=== PATIENT | male | born 1950 | race Two or more races ===

== ENCOUNTER 2019-08-14 15:40 | Inpatient (IN) | payer MEDICARE, MEDICAID ==
[~2019-08-14] VITALS: Ht 170.2 cm; Wt 72.3 kg
[2019-08-14 17:00] VITALS: BP 101/65
[2019-08-14] MEDS ORDERED: HEPARIN DRIP/D5W 100UNITS/ML 250 ML IV SCH (17:44)
[2019-08-14] MEDS ORDERED: ACETAMINOPHEN 500 MG TAB PO PRN (17:45)
[2019-08-14] MEDS ORDERED: MORPHINE SULF INJ 2 MG/ML SYRINGE 1ML IV PRN (17:45)
[2019-08-14] MEDS ORDERED: ONDANSETRON HCL 4 MG/2 ML VIAL IV PRN (17:45)
[2019-08-14] MEDS ORDERED: NITROGLYCERIN 0.4 MG SL TAB SL PRN (17:45)
[2019-08-14] MEDS ORDERED: hydrALAZINE HCL 20 MG/ML VL IV PRN (17:45)
[2019-08-14 18:28] VITALS: BP 101/65
[2019-08-14 18:45] LABS: Basophils # (auto) 0 uL; Basophils % (auto) 0.7 % (0.0-2.0); Hemoglobin 9.5 g/dL (13.5-17.5); Monocytes # (auto) 0.4 uL; Red Blood Cells 3.69 10^6/uL (4.5-5.90)
[2019-08-14 18:48] LABS: Eosinophils # (auto) 0 uL; Eosinophils % (auto) 1.2 % (0.0-7.0); Hematocrit 30.2 % (41.0-53.0); Lymphocytes # (auto) 1.2 uL; Lymphocytes % (auto) 33.1 % (10.0-50.0); Mean Corpuscular Hemoglobin 25.6 pg (28.0-32.0); Mean Corpuscular Hgb Conc. 31.4 g/dL (32.0-36.0); Mean Corpuscular Volume 81.6 fL (80.0-100.0); Monocytes % (auto) 10.9 % (0.0-12.0); Neutrophils % (auto) 54.1 % (37.0-80.0); Nucleated Red Blood Cells % 0.2 %; Platelet Count (auto) 183 10^3/uL (140-450); Red Cell Distribution Width 19.8 % (11.8-14.3); White Blood Cell 3.7 10^3/uL (4.4-10.8)
[2019-08-14] MEDS ORDERED: METO-159 PO (18:54)
[2019-08-14] MEDS ORDERED: SENN1TAB14 PO (18:54)
[2019-08-14] MEDS ORDERED: DOCU-94 PO (18:54)
[2019-08-14] MEDS ORDERED: CRAN600T PO (18:54)
[2019-08-14] MEDS ORDERED: ACET-1156 PO (18:54)
[2019-08-14] MEDS ORDERED: AMLO5TAB15 PO (18:54)
[2019-08-14] MEDS ORDERED: FERR-20 PO (18:54)
[2019-08-14] MEDS ORDERED: ALLO300T2 PO (18:54)
[2019-08-14] MEDS ORDERED: ACET250T3 PO (18:54)
[2019-08-14 18:57] LABS: INR 1.06 (0.9-1.15); Partial Thromboplastin Time 36.9 sec (23.64-32.05)
--- NOTE | 2019-08-14 19:20 | NUR ---
Critical Lab Critical troponin 28.7. Hospitalist will be made aware.
--- NOTE | 2019-08-14 19:38 | NUR ---
Called/paged Dr. Cortes called re: elevated troponin of 28.7. Waiting for call back. Continue care. Hospitalist Gurinder Parham aware.
--- NOTE | 2019-08-14 19:41 | NUR ---
Spoke to Dr. Cortes Received order to prepare checklist and consents for possible hearth cath for william
[2019-08-14] MEDS: MORPHINE SULF INJ 2 MG/ML SYRINGE 1ML IV PRN (19:46)
--- NOTE | 2019-08-14 20:01 | NUR ---
returned call Dr. Cortes returned call. Ordered for a Code Stemi and to call labour market economist team. Will notify house sup and charge nurse. Continue care.
--- NOTE | 2019-08-14 20:03 | NUR ---
House Sup notified of Code Stemi.
--- NOTE | 2019-08-14 20:05 | NUR ---
Patient signed consents for heart cath.
--- NOTE | 2019-08-14 20:07 | NUR ---
Hospitalist called STILL PUMP OPERATOR Gurinder Parham called and oredered to upgrade patient to ICU. Will notify charge. 12 lead EKG on patient. RN at bedside.
--- NOTE | 2019-08-14 20:09 | NUR ---
Resource nurse and Charge nurse Attempted to insert a second IV. Unable to insert second IV.
--- NOTE | 2019-08-14 20:17 | NUR ---
Prepped patient with CHG wipes and changed to a clean gown. Awaiting to take patient down to semiconductor lab technician.
[2019-08-14] MEDS ORDERED: IODIXANOL 320MG/ML 100ML BTL IV ONE (20:27)
[2019-08-14] MEDS ORDERED: LIDOCAINE 2%HCL (LOCAL ANESTH.) INJ 20ML MDV ONE (20:27)
[2019-08-14] MEDS ORDERED: ATROPINE SULFATE 0.4 MG/1 ML VIAL ONE (20:39)
[2019-08-14] MEDS ORDERED: fentaNYL CITRATE 100 MCG/2 ML VL ONE (20:39)
[2019-08-14] MEDS ORDERED: EPINEPHrine HCL 1 MG/1 ML AMP ONE (20:39)
[2019-08-14] MEDS ORDERED: ANGIOMAX 250 MG VIAL IV ONE (20:39)
[2019-08-14] MEDS ORDERED: MIDAZOLAM HCL 1MG/1ML-2 ML VIAL ONE (20:40)
[2019-08-14] MEDS ORDERED: IOHEXOL 350 MG/ML 100ML IJ ONE (20:40)
[2019-08-14] MEDS ORDERED: NITROGLYCERIN 50MG/250ML 0 ML IV ONE (20:40)
[2019-08-14] MEDS ORDERED: SODIUM CHL 0.9% 50 ML ONE (20:40)
[2019-08-14] MEDS ORDERED: DOPamine 1600MCG/ML D5W 0 ML IV ONE (20:40)
--- NOTE | 2019-08-14 20:40 | NUR ---
Received call from fish hatchery laborer to bring patient down.
[2019-08-14] MEDS ORDERED: ADENOSINE 6 MG/2 ML INJ IV ONE (20:42)
--- NOTE | 2019-08-14 20:43 | NUR ---
Transferred patient to laborer brush clearing via hospital bed attached to 12 lead EKG. Patient tolerated well.
[2019-08-14] MEDS ORDERED: CLOPIDOGREL 300 MG TAB ONE (21:49)
[2019-08-14] MEDS ORDERED: ASPirin 325 MG TAB ONE (21:50)
--- NOTE | 2019-08-14 21:50 | NUR ---
terrazzo laborer called. Per Dr. Jermaine Cortes, patient will not be transferred to ICU and patient will be sent back to Tele floor. Will notify charge nurse.
--- NOTE | 2019-08-14 22:35 | NUR ---
Back to floor from grass farm laborer. Patient asleep with no signs of distress. Pressure dressing on right groin with small pinkish discharge. Right groin soft with no signs of hemorrhage. Will continue to monitor.
[2019-08-14 23:07] LABS: White Blood Cell 3.6 10^3/uL (4.4-10.8)
[2019-08-14 23:09] LABS: Hematocrit 29.6 % (41.0-53.0); Hemoglobin 9.3 g/dL (13.5-17.5); Mean Corpuscular Hemoglobin 25.7 pg (28.0-32.0); Mean Corpuscular Hgb Conc. 31.6 g/dL (32.0-36.0); Mean Corpuscular Volume 81.6 fL (80.0-100.0); Platelet Count (auto) 185 10^3/uL (140-450); Red Blood Cells 3.63 10^6/uL (4.5-5.90); Red Cell Distribution Width 19.8 % (11.8-14.3)
[2019-08-14 23:17] LABS: Basophils % (manual) 0 (0.0-2.0); Blast Cells 0; Metamyelocytes % 0; Myelocytes % 0; Promyelocytes % 0; Reactive Lymphocytes 0
[2019-08-14 23:22] LABS: BUN/Creatinine Ratio 12.3; Calcium 8.2 mg/dL (8.5-10.1); Potassium 3.9 mmol/L (3.5-5.1)
[2019-08-15] MEDS: ATORVASTATIN 20 MG TAB PO SCH ×2 (01:33→22:01)
[2019-08-15] MEDS: SODIUM CHLORIDE 0.9% 1,000 ML IV SCH ×2 (01:33→11:08)
[2019-08-15] MEDS: DOCUSATE SOD 100 MG CAP PO SCH ×3 (01:33→22:00)
[2019-08-15] MEDS: METOPROLOL TARTRATE 25 MG TAB PO SCH ×3 (01:35→22:01)
--- NOTE | 2019-08-15 02:05 | NUR ---
Lab called for Critical Troponin Troponin at 90.3 up from 28.7. Patient is status post heart cath last night 08/14 Will notify hospitalist.
--- NOTE | 2019-08-15 02:08 | NUR ---
Hospitalist Called/paged TOOL PROGRAMMER Ilan Thakur called re: critical troponin of 90.3. Waiting for call back. Continue care. Dr. Jermaine Cortes also notified of critical troponin.
[2019-08-15] MEDS: MORPHINE SULF INJ 2 MG/ML SYRINGE 1ML IV PRN (02:28)
[2019-08-15 02:47] LABS: Band Neutrophils % (manual) 1; Eosinophils % (manual) 1 (0-7); Lymphocytes % (manual) 19 (10.0-50.0); Monocytes % (manual) 6 (0-12)
[2019-08-15 05:00] VITALS: BP 100/66
--- NOTE | 2019-08-15 07:16 | NUR ---
Endorsed care to day shift RN.
[2019-08-15 07:49] LABS: Basophils # (auto) 0 uL; Eosinophils # (auto) 0 uL; Eosinophils % (auto) 0.7 % (0.0-7.0); Hemoglobin 9.5 g/dL (13.5-17.5); Lymphocytes # (auto) 0.8 uL; Mean Corpuscular Hemoglobin 25.8 pg (28.0-32.0); Mean Corpuscular Hgb Conc. 31.5 g/dL (32.0-36.0); Monocytes # (auto) 0.5 uL; Monocytes % (auto) 13.6 % (0.0-12.0); Neutrophils # (auto) 2.1 uL; Neutrophils % (auto) 61.7 % (37.0-80.0); Nucleated Red Blood Cells % 0.1 %; Platelet Count (auto) 179 10^3/uL (140-450); Red Blood Cells 3.66 10^6/uL (4.5-5.90); Red Cell Distribution Width 19.8 % (11.8-14.3); White Blood Cell 3.4 10^3/uL (4.4-10.8)
[2019-08-15 07:56] LABS: BUN/Creatinine Ratio 11.8; Calcium 8.1 mg/dL (8.5-10.1); Potassium 4.1 mmol/L (3.5-5.1)
[2019-08-15 07:58] LABS: INR 1.06 (0.9-1.15); Partial Thromboplastin Time 31.4 sec (23.64-32.05)
[2019-08-15] MEDS: ASPirin-EC 81 mg tab PO SCH (08:43)
[2019-08-15] MEDS: CLOPIDOGREL BISULFATE 75 MG TAB PO SCH (08:44)
[2019-08-15] MEDS: FAMOTIDINE 20 MG TAB PO SCH (08:45)
[2019-08-15] MEDS: HYDROcodone-ACET 5/325MG TAB PO PRN ×3 (08:46→22:01)
[2019-08-15 09:00] VITALS: BP 107/76
[2019-08-15] MEDS: LISINOPRIL 10 MG TAB PO SCH (11:07)
[2019-08-15 13:00] VITALS: BP 133/81
[2019-08-15 17:00] VITALS: BP 117/77
--- NOTE | 2019-08-15 19:40 | NUR ---
Opening Shift Note Assumed care of patient, awake and alert. No S/S of distress/SOB or pain. Right groin incision, clean dry and intact, no hematoma noted. Bed locked in lowest position, side rails upx2, call light within reach. Instructed on POC and to call for assist PRN, will continue to monitor for changes Q1hr and PRN.
[2019-08-15 22:00] VITALS: BP 135/89
[2019-08-16] MEDS: SODIUM CHLORIDE 0.9% 1,000 ML IV SCH ×2 (04:00→14:15)
[2019-08-16 05:43] VITALS: BP 147/76
[2019-08-16 08:09] VITALS: BP 159/98
--- NOTE | 2019-08-16 08:17 | NUR ---
Opening Note Assumed pt care from [facility] nurse. Pt is a/ox4 with no s/s of distress or SOB. Pt is currently laying in bed with mild complaints of joint pain from his "gout". Discussed availability of pain medication. Discussed POC with pt' pt verbalized understanding. Dressing to L groin from [facility] is dry and inact; pt states that he has some mild pain from the site. Safety measures maintained with call light within reach, bed in lowest position and side rails up. Will continue to monitor for changes q1hr and prn.
[2019-08-16] MEDS: CLOPIDOGREL BISULFATE 75 MG TAB PO SCH (08:45)
[2019-08-16] MEDS: cefTRIAXone 1GM/50ML D5W 50 ML IV SCH ×2 (08:45→21:45)
[2019-08-16] MEDS: HYDROcodone-ACET 5/325MG TAB PO PRN ×2 (08:45→22:30)
[2019-08-16] MEDS: ASPirin-EC 81 mg tab PO SCH (08:45)
[2019-08-16] MEDS: FAMOTIDINE 20 MG TAB PO SCH (08:46)
[2019-08-16] MEDS: METOPROLOL TARTRATE 25 MG TAB PO SCH ×2 (08:46→21:46)
[2019-08-16] MEDS: DOCUSATE SOD 100 MG CAP PO SCH ×2 (08:46→21:45)
[2019-08-16] MEDS: LISINOPRIL 10 MG TAB PO SCH (08:46)
[2019-08-16 13:00] VITALS: BP 146/90
--- NOTE | 2019-08-16 16:39 | NUR ---
PETER SHORT; LEFT MESSAGE VIA ANSWERING SERVICE Pt is upset that MD has not seen him since [facility]. Pt is becoming quite frustrated and requested that the MD see the pt. Reassured the pt that MD will round to see him. Told pt that I will page MD to follow up. Attempted to call MD via cell phone; no answer. Left message via his answering service.
[2019-08-16 17:09] VITALS: BP 169/96
--- NOTE | 2019-08-16 19:30 | NUR ---
Opening Shift Note Assumed care of patient, awake and alert x4. Resting in bed. Extra blanket given per pt request. Using urinal. IV infusing per orders. Site benign. Will page MD regarding pt request for benadryl. States " the soap is making me very itchy." No S/S of distress/SOB or pain. Instructed on POC and to call for assist PRN, will continue to monitor for changes Q1hr and PRN.
[2019-08-16 22:00] VITALS: BP 147/83
[2019-08-16] MEDS: ATORVASTATIN 20 MG TAB PO SCH (22:00)
--- NOTE | 2019-08-16 22:00 | NUR ---
Paged hospitalist @ 1999 and [phone]. Received call back informing me he was not the attending that Dr. Will Cortes was. Paged Dr. Cortes. and awaiting return phone call. Patient requesting benadryl for itching and a sleeping pill. No distress noted
[2019-08-17 04:14] VITALS: BP 125/81
[2019-08-17] MEDS: SODIUM CHLORIDE 0.9% 1,000 ML IV SCH (06:57)
--- NOTE | 2019-08-17 07:00 | NUR ---
Never received return call from Dr. Cortes. Patient slept well through out night. Endorsed care to
--- NOTE | 2019-08-17 07:30 | NUR ---
OPENING SHIFT NOTE PATIENT UP OUT OF BED IN ROOM. PATIENT IN NO S/S OF DISTRESS AT THIS TIME. DENIES ANY PAIN AT THIS TIME. PATIENT STATES HE WANTS TO GO HOME. WILL CALL M.D. PATIENT UPDATED ON POC. ALL QUESTIONS ANSWERED. BED IN LOWEST LOCKED POSITION. WILL CONTINUE CARE.
[2019-08-17 09:00] VITALS: BP 153/97
--- NOTE | 2019-08-17 09:45 | NUR ---
Jareth SHORT AT BEDSIDE. MADE AWARE OF PATIENT STATUS. RECEIVED NEW ORDERS. TORB. WILL FOLLOW THROUGH
[2019-08-17] MEDS: cefTRIAXone 1GM/50ML D5W 50 ML IV SCH ×2 (10:07→22:29)
[2019-08-17] MEDS: LISINOPRIL 10 MG TAB PO SCH (10:38)
[2019-08-17] MEDS: FAMOTIDINE 20 MG TAB PO SCH (10:38)
[2019-08-17] MEDS: CLOPIDOGREL BISULFATE 75 MG TAB PO SCH (10:38)
[2019-08-17] MEDS: DOCUSATE SOD 100 MG CAP PO SCH ×2 (10:39→22:00)
[2019-08-17] MEDS: ASPirin-EC 81 mg tab PO SCH (10:39)
[2019-08-17] MEDS: FLUCONAZOLE 100 MG TAB PO SCH (10:39)
[2019-08-17] MEDS: METOPROLOL TARTRATE 25 MG TAB PO SCH ×2 (10:40→22:35)
[2019-08-17] MEDS: ALBUTEROL SULF 2.5 MG/0.5ML(0.5%) NEB SOLN NEB SCH ×3 (11:12→22:31)
[2019-08-17] MEDS: IPRATROPIUM BROM 0.5 MG/2.5ML INH SOL NEB SCH ×3 (11:13→22:31)
[2019-08-17] MEDS: CLOTRIMAZOLE 1 % CREAM 15GM TOP SCH ×2 (11:21→22:00)
--- NOTE | 2019-08-17 12:00 | NUR ---
IV insertion IV access obtained, via clean sterile technique by inserting 22 gauge catheter at L HAND after 1 attempt(s). IV secured properly. No trauma to site. Patient tolerated well. NOTE:
--- NOTE | 2019-08-17 12:00 | NUR ---
IV removal IV DC'd with clean sterile technique, catheter fully intact. Pressure dressing applied to site. Patient tolerated well. NOTE:
[2019-08-17 13:00] VITALS: BP 134/80
--- NOTE | 2019-08-17 18:48 | NUR ---
assessment Rigoberto is a 68 year old male who is alert and oriented. Patients cognitive abilities are intact. Prior to admission patient lived home with his fiance and functioned with assistance. Per patient he will return home to his prior living arrangements post discharge and family will transport him home. Patient informed me he has a fww and a cane for home use. Patient has a [facility] caregiver to cook and clean for him. Patient has been admitted for non stemi. Patient may benefit from home health for safety and vitals on discharge. I informed patient he has a right to speak to a manager social media regarding all care. I informed patient he has a right to participate in any and all discharge planning. Patient does not have a POA and advanced directive. I have offered patient information on POA and advanced directives. I informed the patient the advantages and benefits of having an Advanced Directive. Patient verbalized understanding and agreed to discharge plan. Addendum: 08/17/19 at 1850 by Ami JOSHUA Amended: Links added.
--- NOTE | 2019-08-17 19:00 | NUR ---
CARE ENDORSED TO JANIA DARBY. PATIENT HAS NO S/S OF DISTRESS NOTED AT THIS TIME.
--- NOTE | 2019-08-17 19:30 | NUR ---
Opening Shift Note Assumed care of patient, awake and alert. In better spirits today. Seen by Dr. Cortes today. Requesting a sleeping pill later. Witnessed a steady gait . No S/S of distress/SOB or pain. Instructed on POC and to call for assist PRN, will continue to monitor for changes Q1hr and PRN.
[2019-08-17 20:00] VITALS: BP 134/92
[2019-08-17] MEDS: ATORVASTATIN 20 MG TAB PO SCH (22:29)
[2019-08-17] MEDS: TEMAZEPAM 15 MG CAP PO PRN (22:36)
[2019-08-18 01:25] VITALS: BP 145/87
[2019-08-18] MEDS: ALBUTEROL SULF 2.5 MG/0.5ML(0.5%) NEB SOLN NEB SCH ×6 (02:25→22:11)
[2019-08-18] MEDS: IPRATROPIUM BROM 0.5 MG/2.5ML INH SOL NEB SCH ×6 (02:25→22:11)
[2019-08-18 05:41] VITALS: BP 154/90
[2019-08-18 07:26] LABS: Eosinophils # (auto) 0.1 uL; Lymphocytes # (auto) 0.7 uL; Monocytes # (auto) 0.5 uL; Nucleated Red Blood Cells % 0.1 %; Red Cell Distribution Width 19.9 % (11.8-14.3)
[2019-08-18 07:28] LABS: Basophils # (auto) 0.1 uL; Basophils % (auto) 1.5 % (0.0-2.0); Eosinophils % (auto) 2.3 % (0.0-7.0); Hematocrit 31.4 % (41.0-53.0); Hemoglobin 9.7 g/dL (13.5-17.5); Lymphocytes % (auto) 19.3 % (10.0-50.0); Mean Corpuscular Hemoglobin 25.5 pg (28.0-32.0); Mean Corpuscular Hgb Conc. 30.9 g/dL (32.0-36.0); Mean Corpuscular Volume 82.4 fL (80.0-100.0); Monocytes % (auto) 15.2 % (0.0-12.0); Neutrophils # (auto) 2.1 uL; Neutrophils % (auto) 61.7 % (37.0-80.0); Platelet Count (auto) 127 10^3/uL (140-450); Red Blood Cells 3.81 10^6/uL (4.5-5.90); White Blood Cell 3.4 10^3/uL (4.4-10.8)
--- NOTE | 2019-08-18 07:30 | NUR ---
OPENING SHIFT NOTE PATIENT SITTING UP IN BED. NO S/S OF DISTRESS NOTED AT THIS TIME. DENIES ANY PAIN AT THIS TIME. A&0X4. UPDATED ON POC. ALL QUESTIONS ANSWERED. BED IN LOWEST LOCKED POSITION WITH CALL LIGHT WITHIN REACH.
[2019-08-18 07:34] LABS: BUN/Creatinine Ratio 7.7; Calcium 8.3 mg/dL (8.5-10.1); Potassium 3.6 mmol/L (3.5-5.1)
[2019-08-18 09:00] VITALS: BP 129/91
[2019-08-18] MEDS: FAMOTIDINE 20 MG TAB PO SCH (09:15)
[2019-08-18] MEDS: FLUCONAZOLE 100 MG TAB PO SCH (09:16)
[2019-08-18] MEDS: ASPirin-EC 81 mg tab PO SCH (09:16)
[2019-08-18] MEDS: CLOPIDOGREL BISULFATE 75 MG TAB PO SCH (09:16)
[2019-08-18] MEDS: METOPROLOL TARTRATE 25 MG TAB PO SCH ×2 (09:17→21:45)
[2019-08-18] MEDS: LISINOPRIL 10 MG TAB PO SCH (09:17)
[2019-08-18] MEDS: cefTRIAXone 1GM/50ML D5W 50 ML IV SCH ×2 (09:17→21:58)
[2019-08-18] MEDS: CLOTRIMAZOLE 1 % CREAM 15GM TOP SCH ×2 (09:18→22:21)
[2019-08-18] MEDS: DOCUSATE SOD 100 MG CAP PO SCH ×2 (09:19→21:59)
--- NOTE | 2019-08-18 12:58 | NUR ---
PATIENT SIGNED AMA FORM TO GO WALK DOWN STAIRS. INFORMED OF RISKS OF GOING DOWN STAIRS. PATIENT VERBALIZED UNDERSTANDING AND SIGNED FORM.
[2019-08-18 13:00] VITALS: BP 130/92
--- NOTE | 2019-08-18 14:45 | NUR ---
Nutrition Assessment Notes please see attached link for complete assessment Est. Needs based on BW (73 kg): 3011-2648 kcal (23-25 kcal/kgBW), 73-80 gms pro (1.0-1.1 gms/kgBW). Will continue to monitor pertinent labs and reassess nutrient need prn Addendum: 08/18/19 at [address] Amended: Links added.
[2019-08-18 17:00] VITALS: BP 142/82
--- NOTE | 2019-08-18 18:56 | NUR ---
RT NOTE PT WAS SEEN BY RT FOR HHN TX. PT TOLERATES WELL VIA MASK NO ADVERSE REACTION NOTED. PT WAS ASLEEP BUT EASILY AWAKENED. CONT ORDERED Addendum: 08/18/19 at 1857 by Debra Lepe RT Amended: Links added.
--- NOTE | 2019-08-18 19:30 | NUR ---
Opening Shift Note Assumed care of patient, awake and alertx4. No S/S of distress/SOB or pain. Instructed on POC and to call for assist PRN, will continue to monitor for changes Q1hr and PRN.Wants his sleeping pill later
[2019-08-18] MEDS: ATORVASTATIN 20 MG TAB PO SCH (21:59)
[2019-08-18 22:00] VITALS: BP 144/94
--- NOTE | 2019-08-18 22:12 | NUR ---
RT NOTE PT WAS SEEN BY RT FOR HHN TX PT TOLERATES WELL VIA MASK. NO ADVERSE REACTION NOTED. CONT ORDERED Addendum: 08/18/19 at 2213 by Debra Lepe RT Amended: Links added.
[2019-08-18] MEDS: TEMAZEPAM 15 MG CAP PO PRN (22:15)
--- NOTE | 2019-08-19 01:48 | NUR ---
RT NOTE PT WAS SEEN BY T FOR HHN TX. PT IS SLEEPING AND REQUESTS NOT TO BE AWAKENED AFTER 2200 AND SLEEPING PILL. NO SOB OR DISTRESS NOTED. WILL CONT ORDERED Addendum: 08/19/19 at 0211 by Debra Lepe RT Amended: Links added.
[2019-08-19] MEDS: IPRATROPIUM BROM 0.5 MG/2.5ML INH SOL NEB SCH ×5 (02:00→18:58)
[2019-08-19] MEDS: ALBUTEROL SULF 2.5 MG/0.5ML(0.5%) NEB SOLN NEB SCH ×5 (02:00→18:58)
[2019-08-19 05:00] VITALS: BP 152/92
--- NOTE | 2019-08-19 05:00 | NUR ---
IV was pulled in his sleep per patient. No inflammation noted to left hand IV insertion site. Catheter intact. New IV started to L AC 22 gauge. Saline locked at this time. No distress noted
--- NOTE | 2019-08-19 07:30 | NUR ---
OPENING SHIFT NOTE PATIENT RESTING IN BED LOW FOWLERS. NO S/S OF DISTRESS NOTED AT THIS TIME. PATIENT DENIES ANY PAIN AT THIS TIME. PATIENT UPDATED ON POC. ALL QUESTIONS ANSWERED. PATIENT VERBALIZED UNDERSTANDING. BED IN LOWEST LOCKED POSITION WITH CALL LIGHT WITHIN REACH.
[2019-08-19] MEDS: cefTRIAXone 1GM/50ML D5W 50 ML IV SCH (08:50)
[2019-08-19] MEDS: CLOPIDOGREL BISULFATE 75 MG TAB PO SCH (08:51)
[2019-08-19] MEDS: METOPROLOL TARTRATE 25 MG TAB PO SCH (08:51)
[2019-08-19] MEDS: FLUCONAZOLE 100 MG TAB PO SCH (08:51)
[2019-08-19] MEDS: ASPirin-EC 81 mg tab PO SCH (08:52)
[2019-08-19] MEDS: LISINOPRIL 10 MG TAB PO SCH (08:52)
[2019-08-19] MEDS: FAMOTIDINE 20 MG TAB PO SCH (08:52)
[2019-08-19] MEDS: CLOTRIMAZOLE 1 % CREAM 15GM TOP SCH (08:53)
[2019-08-19] MEDS: DOCUSATE SOD 100 MG CAP PO SCH (08:53)
[2019-08-19 08:57] VITALS: BP 131/89
[2019-08-19 13:00] VITALS: BP 137/94
[2019-08-19] MEDS ORDERED: LEVOFLOXACIN 500MG 100 ML IV ONE (13:30)
--- NOTE | 2019-08-19 14:00 | NUR ---
Jareth FOX AT BEDSIDE. UPDATED ON PATIENT STATUS. AWARE OF CT. Jareth CONCERNED FOR POSSIBLE TB. STATED HE WILL PLACE A ORDER FOR WATER SAFETY TEACHER TO EVALUATE FINDINGS OF CT.
--- NOTE | 2019-08-19 15:00 | NUR ---
PATIENT TRANSFERED TO ROOM 283A FOR ISOLATION TO RULE OUT TB. PATIENT AWARE. NO S/S OF DISTRESS NOTED AT THIS TIME.
--- NOTE | 2019-08-19 16:32 | NUR ---
Jareth VALIENTE AT BEDSIDE. 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 PER Jareth HE DOES NOT BELIEVE THIS NODULE IS TB. WILL MAKE Jareth FOX AWARE.
--- NOTE | 2019-08-19 16:45 | NUR ---
SPOKE TO Jareth FOX STATED HE HAS SPOKEN TO Doug VALIENTE. STATED OK TO D/C PATIENT TODAY.
[2019-08-19 16:59] VITALS: BP 154/107
--- NOTE | 2019-08-19 18:20 | NUR ---
PATIENT DAUGHTER STATED THAT UNCLE WAS PROMISED A RIDE THROUGH [employer] [facility] TO [place]. THIS RN SPOKE TO HEALTH INFORMATION TECHNOLOGIST KACY WHO STATED [employer] WOULD NOT TAKE PATIENT ALL THE WAY TO [place], BUT A BUS PASS COULD BE PROVIDED. PER DAUGHTER NO ONE WOULD BE ABLE TO PICK PATIENT UP FROM BUS STATION. DAUGHTER SPOKE TO PATIENT WHO THEN TOLD THIS RN THAT A RIDE WOULD BE AVAILABLE TO PICK HIM UP IN 20-40 MINUTES.
--- NOTE | 2019-08-19 18:55 | NUR ---
Discharge instructions given as ordered. Encourage to follow up with PMD as instructed. Patient instructed to make all follow up appointments with giana hodges and shantanu hung. Received all prescriptions and teaching regarding new medication. patient provided with information from cardiac catheterization including card. All questions and concerns addressed. Patient verbalized understanding. IV removed with catheter intact, pressure dressing applied. Telemetry unit returned to ICU. Patient taken to vehicle via wheelchair with all personal belongings, accompanied by staff to downstairs lobby where ride was waiting for him. No distress noted at time of departure.
[2019-08-20] MEDS ORDERED: LEVOFLOXACIN 500MG 100 ML IV SCH (10:00)
== END 2019-08-19 18:58 | disposition home or self-care (01) | DRG 246 ==
LOC: TELE-WESTW 16:55
PROVIDERS: ADMIT Nurse Practitioner Acute Care; ATTEND Specialist
PROC: 027034Z Dilation of Coronary Artery, One Artery with Drug-eluting Intraluminal Device, Percutaneous Approach (ICD-10-PCS; principal; 2019-08-14)
PROC: 02703ZZ Dilation of Coronary Artery, One Artery, Percutaneous Approach (ICD-10-PCS; 2019-08-14)
PROC: 02C03ZZ Extirpation of Matter from Coronary Artery, One Artery, Percutaneous Approach (ICD-10-PCS; 2019-08-14)
PROC: 4A023N7 Measurement of Cardiac Sampling and Pressure, Left Heart, Percutaneous Approach (ICD-10-PCS; 2019-08-14)
PROC: B211YZZ Fluoroscopy of Multiple Coronary Arteries using Other Contrast (ICD-10-PCS; 2019-08-14)
PROC: B215YZZ Fluoroscopy of Left Heart using Other Contrast (ICD-10-PCS; 2019-08-14)
PROC: B41F1ZZ Fluoroscopy of Right Lower Extremity Arteries using Low Osmolar Contrast (ICD-10-PCS; 2019-08-14)
DX: I21.29 ST elevation (STEMI) myocardial infarction involving other sites (principal); J18.1 Lobar pneumonia, unspecified organism; F19.20 Other psychoactive substance dependence, uncomplicated; J44.0 Chronic obstructive pulmonary disease with (acute) lower respiratory infection; E78.00 Pure hypercholesterolemia, unspecified; N18.3 Chronic kidney disease, stage 3 (moderate); K21.9 Gastro-esophageal reflux disease without esophagitis; I25.10 Atherosclerotic heart disease of native coronary artery without angina pectoris; K59.00 Constipation, unspecified; K74.60 Unspecified cirrhosis of liver; I13.10 Hypertensive heart and chronic kidney disease without heart failure, with stage 1 through stage 4 chronic kidney disease, or unspecified chronic kidney disease; M10.9 Gout, unspecified; I25.2 Old myocardial infarction; Z79.02 Long term (current) use of antithrombotics/antiplatelets; Z82.49 Family history of ischemic heart disease and other diseases of the circulatory system; Z72.0 Tobacco use; Z79.899 Other long term (current) drug therapy; Z86.73 Personal history of transient ischemic attack (TIA), and cerebral infarction without residual deficits; Z86.11 Personal history of tuberculosis
CPT/HCPCS: 36415; 71045; 71250; 80048; 84484; 85007; 85025; 85027; 85610; 85730; 86141; 87081; 92920; 92933; 92973; 93005; 93306; 93458; 94640; 99152; 99153; C1874; G0378; J0153; J0171; J0461; J0696; J1956; J2250; Q9967